=== PATIENT | female | born 1985 | race Caucasian/White ===

== ENCOUNTER 2016-09-02 18:04 | Emergency (ER) | payer OTHER ==
[2016-09-02 18:27] VITALS: BP 139/98
--- NOTE | 2016-09-02 19:04 | UC ---
Abdominal Pain Female HPI - HPI Summary HPI Summary: 30 yo female with the onset of crampy abd pain this AM 3-7/10 nausea no vomiting no f/c no diarrhea decreased appetite she blames it on [employer] food from last PM - History of Current Complaint Chief Complaint: UCAbdominalPain Stated Complaint: ABD PAIN Time Seen by Provider: 09/02/16 18:19 Hx Obtained From: Patient Hx Last Menstrual Period: 08/18/16 Onset/Duration: Sudden Onset, Lasting Hours Timing: Constant Severity Initially: Mild Severity Currently: Mild Pain Intensity: 3 Pain Scale Used: 0-10 Numeric Location: Other - see image Radiates: No Character: Cramping Aggravating Factor(s): Nothing Alleviating Factor(s): Nothing Associated Signs and Symptoms: Positive: Nausea Allergies/Adverse Reactions: Allergies Allergy/AdvReac Type Severity Reaction Status Date / Time Hydrocodone AdvReac Vomiting Verified 09/02/16 18:14 Home Medications: Home Medications Bismuth Subsalicylate [Pepto Bismol] 262 mg PO ONCE 09/02/16 [History Confirmed 09/02/16] Cetirizine* [ZyrTEC 10 MG TAB*] 10 mg PO DAILY 09/02/16 [History Confirmed 09/02] Multiple Vitamins W/ Minerals [Multivitamin Adults] 09/02/16 [History] Norgestrel & Ethinyl Estradiol [Cryselle-28] 1 tab PO 09/02/16 [History] PMH/Surg Hx/FS Hx/Imm Hx Previously Healthy: Yes - Surgical History Surgical History: None - Family History Known Family History: Positive: Hypertension Negative: Cardiac Disease, Diabetes - Social History Alcohol Use: Occasionally Substance Use Type: None Smoking Status (MU): Never Smoked Tobacco - Immunization History Most Recent Influenza Vaccination: 2016 Review of Systems Constitutional: Negative Skin: Negative Eyes: Negative ENT: Negative Respiratory: Negative Cardiovascular: Negative Gastrointestinal: Abdominal Pain, Other - nausea/anorexia Genitourinary: Negative Motor: Negative Neurovascular: Negative Musculoskeletal: Negative Neurological: Negative Psychological: Negative All Other Systems Reviewed And Are Negative: Yes Physical Exam Triage Information Reviewed: Yes Appearance: Well-Appearing, No Pain Distress, Well-Nourished Vital Signs: Initial Vital Signs Temp 98.9 F 09/02/16 18:17 Pulse 73 09/02/16 18:17 Resp 18 09/02/16 18:17 BP 139/98 09/02/16 18:17 Pulse Ox 100 09/02/16 18:17 Vital Signs Reviewed: Yes Eyes: Positive: Conjunctiva Clear ENT: Positive: Normal ENT inspection, Pharynx normal, TMs normal. Negative: Nasal congestion, Nasal drainage, Tonsillar swelling, Tonsillar exudate, Trismus , Muffled/hoarse voice Neck: Positive: Supple, Nontender, No Lymphadenopathy Respiratory: Positive: Lungs clear, Normal breath sounds, No respiratory distress Cardiovascular: Positive: RRR, No Murmur. Negative: Tachycardia, Bradycardia Abdomen Description: Positive: No Organomegaly. Negative: Nontender, CVA Tenderness (R), CVA Tenderness (L), Hepatomegaly, Splenomegaly Musculoskeletal Exam: Normal Musculoskeletal: Positive: ROM Intact Neurological: Positive: Alert Psychological Exam: Normal Skin Exam: Normal Abd Pain Female Course/Dx - Differential Dx/Diagnosis Provider Diagnoses: abdominal pain of uncertain cause. microscopic hematuria Discharge - Discharge Plan Condition: Stable Disposition: HOME Prescriptions: Ondansetron TAB* [Zofran Tab*] 4 mg PO Q6H PRN #4 tab PRN Reason: Nausea Patient Education Materials: Hematuria (ED), Abdominal Pain (ED) Referrals: Lupillo SCHMID,Alethea Alanis [Primary Care Provider] - 1 Day (recheck tomorrow if not better recheck in 1-2 weeks re BP and hematuria) Additional Instructions: your BP was a little high her (probably due to your illness) but should get rechecked 139/98 you have microscopic evidence of blood in your urine which needs rechecking recheck in ER for increased pain/fever/persistent vomiting Images Front/Back of Body, Lg (Anderson): 1 - bandlike pain below umbilicus/normal gait/no peritoneal signs
== END 2016-09-02 19:20 | disposition home or self-care (01) ==
LOC: UCEAST 18:04
DX: R10.9 Unspecified abdominal pain (principal); R31.29 Other microscopic hematuria; Z88.5 Allergy status to narcotic agent
CPT/HCPCS: 81003; 84702; 87086; 99202; G0463

== ENCOUNTER 2017-11-14 16:51 | Emergency (ER) | payer OTHER ==
[2017-11-14 17:04] VITALS: BP 145/83
--- NOTE | 2017-11-14 17:13 | UC ---
Skin Complaint HPI - HPI Summary HPI Summary: insect bite to left arm-last night is concerned because it is still red---she had an insect bite that needed antibiotics once - History of Current Complaint Chief Complaint: UCSkin Time Seen by Provider: 11/14/17 16:55 Stated Complaint: ARM COMPLAINT Hx Obtained From: Patient Hx Last Menstrual Period: 08/18/16 ?: No Onset/Duration: Sudden Onset, Lasting Days - 1, Still Present Skin Exposure Onset/Duration: Days Ago - 1 Timing: Constant Pain Intensity: 7 Pain Scale Used: 0-10 Numeric Location: Discrete - left forearm Character: Redness Alleviating Factor(s): Nothing Associated Signs & Symptoms: Positive: Negative Related History: Insect Bite/Sting - Allergy/Home Medications Allergies/Adverse Reactions: Allergies Allergy/AdvReac Type Severity Reaction Status Date / Time hydrocodone Allergy Nausea And Verified 11/14/17 17:04 Vomiting Review of Systems Constitutional: Negative Skin: Other - erythema left forearm--after insect bite Eyes: Negative ENT: Negative Respiratory: Negative Cardiovascular: Negative Gastrointestinal: Negative Genitourinary: Negative Motor: Negative Neurovascular: Negative Musculoskeletal: Negative Neurological: Negative Psychological: Negative Is Patient Immunocompromised?: No All Other Systems Reviewed And Are Negative: Yes PMH/Surg Hx/FS Hx/Imm Hx Previously Healthy: Yes - Surgical History Surgical History: None - Family History Known Family History: Positive: Hypertension Negative: Cardiac Disease, Diabetes - Social History Occupation: Employed Full-time Lives: With Family Alcohol Use: Occasionally Substance Use Type: None Smoking Status (MU): Never Smoked Tobacco - Immunization History Most Recent Influenza Vaccination: 2015 Physical Exam Triage Information Reviewed: Yes Appearance: Well-Appearing, No Pain Distress, Well-Nourished Vital Signs: Initial Vital Signs Temp 98.0 F 11/14/17 17:00 Pulse 67 11/14/17 17:00 Resp 18 11/14/17 17:00 BP 145/83 11/14/17 17:00 Pulse Ox 99 11/14/17 17:00 Vital Signs Reviewed: Yes Eye Exam: Normal Eyes: Positive: Conjunctiva Clear ENT Exam: Normal ENT: Positive: Normal ENT inspection, Hearing grossly normal. Negative: Trismus , Muffled voice, Hoarse voice Dental Exam: Normal Neck exam: Normal Neck: Positive: Supple, Nontender, No Lymphadenopathy Respiratory Exam: Normal Respiratory: Positive: Chest non-tender, No respiratory distress, No accessory muscle use Cardiovascular Exam: Normal Cardiovascular: Positive: RRR, Pulses Normal, Brisk Capillary Refill Musculoskeletal Exam: Normal Musculoskeletal: Positive: Strength Intact, ROM Intact, Edema @ - slight swelling at site of insect bite Neurological Exam: Normal Neurological: Positive: Alert, Muscle Tone Normal Psychological Exam: Normal Skin: Positive: Other - erythema right forearm approx 5x10 cm---no abscess, no streaking slight swelling Course/Dx - Course Course Of Treatment: patient will use ice, benadryl, cortisone cream and if fails to improve or worsen in the next 36 hours patient may start antibiotics - Diagnoses Provider Diagnoses: elevated blood pressure without hx of hypertension, localize respose to insect bite -left forearm Discharge - Sign-Out/Discharge Documenting (check all that apply): Patient Departure - Discharge Plan Condition: Stable Disposition: HOME Prescriptions: Cephalexin CAP* [Keflex CAP*] 500 mg PO QID #28 cap Patient Education Materials: Diphenhydramine (By mouth), Hydrocortisone (On the skin), Insect Bite or Sting (ED), Hypertension (ED), Ice Pack Application ( ED) Referrals: Lupillo SCHMID,Alethea Alanis [Primary Care Provider] - 2 Weeks (blood pressure recheck today it was 145/83) - Billing Disposition and Condition Condition: STABLE Disposition: Home
== END 2017-11-14 17:37 | disposition home or self-care (01) ==
LOC: UCEAST 16:51
DX: S40.862A Insect bite (nonvenomous) of left upper arm, initial encounter (principal); Z88.5 Allergy status to narcotic agent; R03.0 Elevated blood-pressure reading, without diagnosis of hypertension; W57.XXXA Bitten or stung by nonvenomous insect and other nonvenomous arthropods, initial encounter; Y92.9 Unspecified place or not applicable
CPT/HCPCS: 99212; G0463